=== PATIENT | male | born 1940 | race American Indian/Alaskan Native ===

== ENCOUNTER 2017-07-23 14:10 | Outpatient (CLI) | payer MEDICARE, MEDICAID ==
--- NOTE | 2017-08-04 08:44 | Cat Scan Report ---
FINAL REPORT EXAM: CT ABD AND PELVIS WO CONTRAST HISTORY: abd pain COMPARISON: None. TECHNIQUE: Multiple contiguous axial images were obtained from the lung bases to the pubic symphysis without administration of IV contrast. Reformatted sagittal and coronal images were available for review. FINDINGS: Lung bases: Minimal dependent atelectasis. Visualized heart and mediastinum: Mild cardiomegaly. Small pericardial effusion. Liver: Normal. Spleen: Normal. Pancreas: Normal. Gallbladder and Biliary Tree: No calcified gallstones. No biliary ductal dilatation. Adrenal glands: Normal. Kidneys: Heterogeneous 4 x 2 centimeter lesion of the interpolar region of the right kidney (series 2, image 47). Several simple appearing cysts the right kidney measuring up to 2.7 centimeters. 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 Normal noncontrast appearance of the left kidney. Bladder: Normal. Pelvic organs: Normal prostate gland and seminal vesicles. Bowel: Large amount of stool within the colon, with more solid appearing stool within the rectum. The remainder of the bowel is normal in appearance. Peritoneum: No significant mesenteric adenopathy. No free air or free fluid. Vasculature: Abdominal aorta is normal in caliber without evidence of aneurysm. Scattered atherosclerotic calcifications. Normal noncontrast appearance of portal venous system and the inferior vena cava. Bones and soft tissues: No suspicious osseous lesions. No acute fracture or dislocation. Degenerative changes of the spine. Soft tissues are normal. IMPRESSION: 1. Heterogeneous 4 x 2 centimeter lesion of the interpolar region of the right kidney concerning for renal mass. Recommend further evaluation with CT or MRI renal protocol. 2. 7 millimeter hemorrhagic cyst of the superior pole of the right kidney and additional simple appearing cysts measuring up to 2.7 centimeters. 3. Large amount of stool within the colon with more solid appearing stool within the rectum concerning for fecal impaction. Recommend clinical correlation.
== END 2017-07-23 14:11 | disposition home or self-care (01) ==
LOC: CT 14:10
PROVIDERS: ATTEND Urology
DX: N28.1 Cyst of kidney, acquired (principal); R31.0 Gross hematuria; I10 Essential (primary) hypertension; J98.11 Atelectasis; I31.3 Pericardial effusion (noninflammatory); I51.7 Cardiomegaly
CPT/HCPCS: 74176